=== PATIENT | male | born 2000 | race Caucasian/White ===

== ENCOUNTER 2024-09-23 21:58 | Emergency (ER) | payer OTHER, SELFPAY ==
[2024-09-23 22:12] VITALS: BP 151/88; PULSE 98; TEMP 37.1; O2SAT 99; BMI 30.3
--- NOTE | 2024-09-23 22:22 | ED.EYEPROB1 ---
HPI - Eye Problem General Chief complaint: Eye Problems Stated complaint: EYE Time Seen by Provider: 09/23/24 22:03 Source: patient Mode of arrival: walk-in Limitations: no limitations History of Present Illness HPI Narrative: This 23-year-old male is brought emergency department by his mother for evaluation of a foreign body in his left eye. He states it is either a piece of metal or from a grinding wheel. He does not wear contacts or corrective lenses. He does not know the date of his last tetanus shot. Related Data Home Medications ?Medication ?Instructions ?Recorded ?Confirmed No Known Home Medications 09/23/24 09/23/24 Allergies Allergy/AdvReac Type Severity Reaction Status Date / Time No Known Drug Allergies Allergy Verified 09/23/24 22:15 Review of Systems ROS Status of ROS 10 or more systems reviewed and unremarkable except as noted in history and below PFSH PFSH Social History Little interest or pleasure in doing things: not at all Feeling down, depressed, or hopeless: not at all Exam Narrative Exam Narrative: Vital signs and Nursing Notes reviewed: Patient is afebrile with a normal pulse, blood pressure is elevated at 151/88, he is not hypoxic with pulse ox of 99% on room air General: Awake, alert, oriented, no acute distress, lying comfortably on the stretcher HEENT: Normocephalic atraumatic, mucous membranes are moist and pink, eyes are clear, visible foreign body at the 9 o'clock position in the right eye, mild conjunctival injection Neck: Supple, no meningeal signs, no anterior or posterior cervical lymphadenopathy Skin: Normal in appearance without rash,pallor, petechiae or purpura Neuro: No focal deficits Constitutional Vital Signs, click to edit/add: Last Vital Signs Temp 98.7 F 09/23/24 22:12 Pulse 98 H 09/23/24 22:12 Resp 20 09/23/24 22:12 BP 151/88 H 09/23/24 22:12 Pulse Ox 99 09/23/24 22:12 O2 Del Method Room Air 09/23/24 22:12 Course Vital Signs Vital signs: Vital Signs Temperature 98.7 F 09/23/24 22:12 Pulse Rate 98 H 09/23/24 22:12 Respiratory Rate 20 09/23/24 22:12 Blood Pressure 151/88 H 09/23/24 22:12 Pulse Oximetry 99 09/23/24 22:12 Oxygen Delivery Method Room Air 09/23/24 22:12 Temperature 98.7 F 09/23/24 22:12 Pulse Rate 98 H 09/23/24 22:12 Respiratory Rate 20 09/23/24 22:12 Blood Pressure 151/88 H 09/23/24 22:12 Pulse Oximetry 99 09/23/24 22:12 Oxygen Delivery Method Room Air 09/23/24 22:12 Discharge Plan Discharge Chief Complaint: Eye Problems Clinical Impression: Acute foreign body of left cornea Patient Disposition: Home, Self-Care Time of Disposition Decision: 22:54 Condition: Good Prescriptions / Home Meds: No Action No Known Home Medications Print Language: [place] Instructions: Eye Foreign Body (ED) Referrals: Tony Petty DO [Primary Care Provider, Internal Medicine] - 1 week Procedures ED Procedure Instructions Procedures Procedures: Procedure note: Removal of foreign body left cornea. Tetracaine was instilled into the left eye, when anesthesia was obtained a cotton-tipped applicator was used to gently remove the foreign body. A large portion of it was able to be removed but on reevaluation there was still a remaining foreign body. Several additional attempts were made to remove this with a cotton tip applicator but were unsuccessful. Ultimately a an ophthalmic bur was used to fully remove the corneal foreign body. There was no residual rust ring. Tetanus was updated and patient was medicated with erythromycin ointment and discharged home with erythromycin ointment to use over the course of the next 5 days, 2 [place] to use as needed for pain as well as Zofran for nausea. Patient was instructed to follow-up with outpatient ophthalmology if he had ongoing eye pain or any concerns.
[2024-09-23] MEDS: HYDROCODONE/ACET 5-325 MG TABLET PO (23:42)
[2024-09-23] MEDS: ERYTHROMYCIN OP OINT 0.5% 1 GM TUBE EYE-LEFT (23:42)
[2024-09-23] MEDS: ONDANSETRON 4 MG RAPDIS TABLET SL (23:42)
[2024-09-23] MEDS: TETRACAINE HCL 0.5% OP SOL 80 DROP/4 ML BOTTLE OP (23:43)
[2024-09-23] MEDS: DIPHTH,PERTUSS(ACELL),TET VAC 0.5 ML SYRINGE IM (23:45)
== END 2024-09-23 23:49 | disposition home or self-care (01) ==
PROVIDERS: Emergency Provider Emergency Medicine; Family Provider Hospitalist; PCP Internal Medicine
DX: T15.82XA Foreign body in other and multiple parts of external eye, left eye, initial encounter (principal); Z23 Encounter for immunization
CPT/HCPCS: 90471; 99283; Q0162